=== PATIENT | female | born 2000 | race Caucasian/White ===

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

== ENCOUNTER 2021-10-14 18:39 | Inpatient (IN) ==
--- NOTE | 2021-10-14 19:56 | Emergency Department Note ---
Impression & Plan Back pain, Radiculopathy, Right leg weakness ED Provider Note NAME: KVNG SOLANO AGE: 20 SEX: F : 2000 ARRIVES VIA: Walk-In INFORMANT: Patient ED PROVIDER(S): Rangel Monson DO CHIEF COMPLAINT: back pain HPI: Patient is a 20-year-old female who presents to the ER for right sided back and leg pain. This has been going on since May. She has followed up with Greta Stuart from [facility]. She had an MRI done about 2 weeks ago. He had an injection of her spine for her wedding but now the pain is worse. She has a L5-S1 disc that is protruding and impinging on her nerve. Several days ago she bent over and felt a pop and has had worsening of the pain in her lumbar spine. She notes today that she is having trouble driving and with increased weakness in the right thigh and leg. Denies any headache or change in vision. No chest pain or shortness of breath. No nausea vomiting or diarrhea. She was told to come in by orthopedic spine. ROS: See above HPI for pertinent positives & negatives. A total of 10 systems reviewed and were otherwise negative. PAST MEDICAL HISTORY:See Below PAST SURGICAL HISTORY:See Below FAMILY HISTORY:See Below SOCIAL HISTORY:See Below HOME MEDICATIONS:See Below ALLERGIES:See Below VITALS:See Below PHYSICAL EXAMINATION: GENERAL: Sitting up in bed, alert, well appearing, well nourished, no distress, non-toxic EYE EXAM: normal conjunctiva. OROPHARYNX: no exudate, no erythema, lips, buccal mucosa, and tongue normal and mucous membranes are moist NECK: supple, no nuchal rigidity, no adenopathy, non-tender LUNGS: Clear to auscultation. Normal chest wall mechanics HEART: no murmurs, S1 normal and S2 normal ABDOMEN: abdomen soft, non-tender, normo-active bowel sounds, no masses, no rebound or guarding. BACK: Back is symmetrical on inspection and there is no deformity, midline lower lumbar tenderness tracking through right gluteus UPPER EXTREMITIES: upper extremities are grossly normal. LOWER EXTREMITIES: Flexion-extension right hip and knee 4 out of 5. Plantar and dorsiflexion as well as EHL 5 out of 5 on the right. DPs 2 out of 4. Her sensation intact. Toe pain reflexes NEURO EXAM: Normal sensorium, cranial nerves II-XII grossly intact, normal speech, no gross weakness of arms. MEDICAL DECISION MAKING: Patient is a 18-year-old female who presents ER for severe right leg pain which is worsened significantly. She is unable to sleep. She has no weakness in her right leg. IV established with records obtained. Was reviewed from early September. Labs show no significant leukocytosis or anemia. BMP was unremarkable. UA was clean. COVID was negative. Patient was given 2 dose of IV morphine. She is given IV Zofran. She is updated bedside. Discussed with Dr. Gill and he agrees with admission and will likely take to the OR tomorrow or the following day. Patient was given steroids on the ER. Triage Nursing notes reviewed. Limited review of prior medical records performed Vital Signs: reviewed and remarkable for no significant abnormalities Differential diagnosis: Differential diagnoses includes but is not limited to lumbar radiculopathy, kidney stone, muscle strain, facture, cauda equina, mass, and disc herniation. ER treatment provided: See below Diagnostics interpreted by me: ECG: none Cardiac Monitoring: An order was placed for continuous cardiac monitoring. The monitor shows a rate of 89 with sinus rhythm. Laboratory studies: As stated above and show below. Imaging studies: See below Consultation(s): As described above discussed with Fuentes Gill Procedures: none Critical Care: None Past Med/Surg History Medical History Asthma Celiac disease Ovarian cyst Paresthesia of right arm and leg Surgical History H/O endoscopy H/O wisdom tooth extraction (11/25/19) No significant past surgical history Family History Father Asthma Hypertension Cancer Brother ADHD (attention deficit hyperactivity disorder) Mother Type 2 diabetes mellitus Breast cancer Other No pertinent family history Social History Smoking Status: Never smoker Hx Alcohol Use: No Hx Substance Use: No Preferred Language: Slovenian Beliefs That Will Affect Care: None marital status: Single Current Living Situation: Parent current occupational status: employed Feels Safe at Home: Yes Dental Care, Regularly: No Seatbelt Use: always Sunscreen Use: Yes Allergies Allergies Allergy/AdvReac Type Severity Reaction Status Date / Time amoxicillin Allergy Severe hives, Verified 10/14/21 19:58 SOB, throat swelling bee venom protein (honey bee) Allergy Unknown unknown Verified 10/14/21 19:58 seafood Allergy Severe Anaphylaxis Uncoded 10/14/21 19:58 Home Meds Home Medications Medication Instructions Recorded Confirmed No Known Home Medications 10/14/21 10/14/21 Results & Data (ED) Vital Signs Vital Signs - 24 hr 10/14/21 18:56 10/14/21 19:33 10/14/21 19:51 Temperature 36.4 C L Temperature Source Temporal Artery Scan Pulse Rate 90 Pulse Rate [Finger] 90 Respiratory Rate 16 18 Respiratory Effort / Characteristics Non-Labored Spontaneous Non-Labored Spontaneous Respiratory Depth Normal Normal Respiratory Pattern Regular Blood Pressure 128/86 Blood Pressure [Right Arm] 126/98 Blood Pressure Mean 100 Blood Pressure Mean [Right Arm] 107 Blood Pressure Position [Right Arm] Semi-fowlers Pulse Oximetry 96 96 99 Oxygen Delivery Method Room Air Room Air Room Air Sepsis Recent Fever Within 48 Hours No Sepsis New/Unexplained Change in Mental Status N/A Sepsis Action Taken by Nursing No Action Required Laboratory Data Result diagrams: 10/14/21 20:03 10/14/21 20:03 Lab Results 10/14/21 10/14/21 10/14/21 Range/Units 20:03 20:03 20:03 WBC 6.69 (4.8-10.8) K/uL RBC 4.62 (4.2-5.4) M/uL Hgb 13.5 (12.0-16.0) g/dL Hct 40.5 (37-47) % MCV 87.7 (80-100) fL MCH 29.2 (25-34) pg MCHC 33.3 (32-36) g/dL RDW Std Deviation 42.3 (36.4-46.3) fL RDW Coeff of Sara 13.2 (11.5-14.5) % Plt Count 314 (130-400) K/uL MPV 10.8 H (7.4-10.4) fL Immature Gran % (Auto) 0.1 % Neut % (Auto) 61.9 % Lymph % (Auto) 30.3 % [place] % (Auto) 7.0 % Eos % (Auto) 0.6 % Baso % (Auto) 0.1 % Neut # (Auto) 4.13 (1.4-6.5) K/uL Lymph # (Auto) 2.03 (1.2-3.4) K/uL [place] # (Auto) 0.47 (0.11-0.59) K/uL Eos # (Auto) 0.04 (0-0.5) K/uL Baso # (Auto) 0.01 (0-0.2) K/uL Immature Gran # (Auto) 0.01 (0.00-0.02) K/uL Sodium 138 (136-145) mmol/L Potassium 3.9 (3.5-5.1) mmol/L Chloride 105 (98-107) mmol/L Carbon Dioxide 27 (21-32) mmol/L Anion Gap 6 (3-11) BUN 16 (6-23) mg/dl Creatinine 0.77 (0.6-1.2) mg/dl Est Cr Clr Drug Dosing 137.5 ml/min Est GFR ( Amer) 127.0 ml/min Est GFR (Non-Af Amer) 109.6 ml/min BUN/Creatinine Ratio 20.8 H (10-20) Glucose 88 (70-99(Fasting)) mg/dl Calcium 9.7 (8.5-10.1) mg/dl Urine Color Yellow Urine Appearance Cloudy A (Clear) Urine pH 6.0 (4.5-7.5) Ur Specific [place] 1.023 (1.000-1.030) Urine Protein Negative (Negative) Urine Glucose (UA) Negative (Negative) Urine Ketones Negative (Negative) Urine Blood Negative (Negative) Urine Nitrite Negative (Negative) Urine Bilirubin Negative (Negative) Urine Urobilinogen Negative (Negative) Ur Leukocyte Esterase Negative (Negative) Urine WBC (Auto) 5-10 H (0-5) /hpf Urine RBC (Auto) 0-4 (0-4) /hpf U Hyaline Cast (Auto) 1-5 (0-5) /lpf U Epithel Cells (Auto) >30 H (0-5) /lpf Urine Bacteria (Auto) 1+ H (Negative) SARS-CoV-2, RNA, NAAT (NEGATIVE) 10/14/21 Range/Units 22:04 WBC (4.8-10.8) K/uL RBC (4.2-5.4) M/uL Hgb (12.0-16.0) g/dL Hct (37-47) % MCV (80-100) fL MCH (25-34) pg MCHC (32-36) g/dL RDW Std Deviation (36.4-46.3) fL RDW Coeff of Sara (11.5-14.5) % Plt Count (130-400) K/uL MPV (7.4-10.4) fL Immature Gran % (Auto) % Neut % (Auto) % Lymph % (Auto) % [place] % (Auto) % Eos % (Auto) % Baso % (Auto) % Neut # (Auto) (1.4-6.5) K/uL Lymph # (Auto) (1.2-3.4) K/uL [place] # (Auto) (0.11-0.59) K/uL Eos # (Auto) (0-0.5) K/uL Baso # (Auto) (0-0.2) K/uL Immature Gran # (Auto) (0.00-0.02) K/uL Sodium (136-145) mmol/L Potassium (3.5-5.1) mmol/L Chloride (98-107) mmol/L Carbon Dioxide (21-32) mmol/L Anion Gap (3-11) BUN (6-23) mg/dl Creatinine (0.6-1.2) mg/dl Est Cr Clr Drug Dosing ml/min Est GFR ( Amer) ml/min Est GFR (Non-Af Amer) ml/min BUN/Creatinine Ratio (10-20) Glucose (70-99(Fasting)) mg/dl Calcium (8.5-10.1) mg/dl Urine Color Urine Appearance (Clear) Urine pH (4.5-7.5) Ur Specific [place] (1.000-1.030) Urine Protein (Negative) Urine Glucose (UA) (Negative) Urine Ketones (Negative) Urine Blood (Negative) Urine Nitrite (Negative) Urine Bilirubin (Negative) Urine Urobilinogen (Negative) Ur Leukocyte Esterase (Negative) Urine WBC (Auto) (0-5) /hpf Urine RBC (Auto) (0-4) /hpf U Hyaline Cast (Auto) (0-5) /lpf U Epithel Cells (Auto) (0-5) /lpf Urine Bacteria (Auto) (Negative) SARS-CoV-2, RNA, NAAT NEGATIVE (NEGATIVE) Administered Medications Discontinued Medications Dexamethasone (Dexamethasone Sod Inj 4 Mg/Ml Vial) Confirm Administered Dose 8 mg .ROUTE .STK-MED ONE Stop: 10/14/21 20:40 Last Admin: 10/14/21 20:48 Dose: Not Given Documented by: [id number] Dexamethasone (Dexamethasone Sod Inj 4 Mg/Ml Vial) Confirm Administered Dose 4 mg .ROUTE .STK-MED ONE Stop: 10/14/21 20:48 Last Admin: 10/14/21 21:10 Dose: Not Given Documented by: [id number] Dexamethasone 10 mg/ Syringe 2.5 mls @ 1 mls/min IV ONE ONE Stop: 10/14/21 20:32 Last Admin: 10/14/21 20:43 Dose: 1 mls/min Documented by: [id number] Morphine Sulfate (Morphine Sulfate 10 Mg/Ml Carp/Vial) 6 mg IV NOW STA Stop: 10/14/21 20:35 Last Admin: 10/14/21 20:43 Dose: 6 mg Documented by: [id number] Ondansetron HCl (Ondansetron Inj 2 Mg/Ml 2 Ml Vial) 4 mg IV NOW STA Stop: 10/14/21 20:35 Last Admin: 10/14/21 20:48 Dose: 4 mg Documented by: [id number] Discharge Plan Visit Data Chief Complaint: Back Injury/Pain Stated Complaint: BACK PAIN ED Provider: Rangel Monson Discharge Problem: Back pain, Radiculopathy, Right leg weakness Forms Stand Alone Forms: On The Net Yet Prescriptions Prescriptions: No Action No Known Home Medications RF: 0 Referrals Referrals: Gabriela Krishnan DO [Primary Care Provider] - Discharge Problem: Back pain Qualifiers: Back pain location: low back pain Chronicity: acute Back pain laterality: right Sciatica presence: unspecified whether sciatica present Qualified Code(s): M54.50 - Low back pain, unspecified Radiculopathy Qualifiers: Spinal region: unspecified Qualified Code(s): M54.10 - Radiculopathy, site u nspecified
[2021-10-14 20:17] LABS: Basophils # (auto) 0.01 K/uL (0-0.2); Basophils % (auto) 0.1 %; Eosinophils # (auto) 0.04 K/uL (0-0.5); Eosinophils % (auto) 0.6 %; Hematocrit (blood only) 40.5 % (37-47); Hemoglobin 13.5 g/dL (12.0-16.0); Immature Granulocytes # (auto) 0.01 K/uL (0.00-0.02); Immature Granulocytes % (auto) 0.1 %; Lymphocytes # (auto) 2.03 K/uL (1.2-3.4); Lymphocytes % (auto) 30.3 %; Mean Corpuscular Hemoglobin 29.2 pg (25-34); Mean Corpuscular Hgb Conc 33.3 g/dL (32-36); Mean Corpuscular Volume 87.7 fL (80-100); Mean Platelet Volume 10.8 fL (7.4-10.4); Monocytes # (auto) 0.47 K/uL (0.11-0.59); Neutrophils # (auto) 4.13 K/uL (1.4-6.5); Neutrophils % (auto) 61.9 %; Platelet Count 314 K/uL (130-400); RDW Coefficient of Variation 13.2 % (11.5-14.5); RDW Standard Deviation 42.3 fL (36.4-46.3); Red Blood Count 4.62 M/uL (4.2-5.4); White Blood Count 6.69 K/uL (4.8-10.8)
[2021-10-14 20:29] LABS: Appearance Urine Cloudy (Clear); Bacteria Urine Automated 1+ (Negative); Bilirubin Urine Negative (Negative); Blood Urine Negative (Negative); Color Urine Yellow; Epithelial Cell Urine Auto >30 /lpf (0-5); Glucose Urine UA Negative (Negative); Ketones Urine Negative (Negative); Leukocyte Esterase Urine Negative (Negative); Nitrite Urine Negative (Negative); Protein Urine Negative (Negative); RBC Urine Automated 0-4 /hpf (0-4); Specific Gravity Urine 1.023 (1.000-1.030); Urobilinogen Urine Negative (Negative)
[2021-10-14] MEDS ORDERED: dexAMETHasone 10 MG in SYRINGE 0 ML IV ONE (20:30)
[2021-10-14] MEDS ORDERED: MoRPHine SULFATE 10 MG/ML CARP/VIAL IV STA ×2 (20:34→22:56)
[2021-10-14] MEDS ORDERED: ONDANSETRON INJ 2 MG/ML 2 ML VIAL IV STA (20:34)
[2021-10-14 20:36] LABS: BUN Creatinine Ratio 20.8 (10-20); Calcium 9.7 mg/dl (8.5-10.1); Creatinine Clr Calc Pharmacy 137.5 ml/min; Est GFR (Non-African American) 109.6 ml/min; Potassium 3.9 mmol/L (3.5-5.1)
[2021-10-14] MEDS ORDERED: DEXAMETHASONE SOD INJ 4 MG/ML VIAL ONE ×2 (20:39→20:47)
[2021-10-14] MEDS ORDERED: ACETAMINOPHEN 1,000 MG/100 ML VIAL IV PRN (23:19)
[2021-10-14] MEDS ORDERED: PROMETHAZINE HCL 12.5 MG in SODIUM CHLORIDE 0.9% 50 ML IV PRN (23:19)
[2021-10-14] MEDS ORDERED: traMADol HCL 50 MG TABLET PO PRN (23:19)
[2021-10-14] MEDS ORDERED: ONDANSETRON 4 MG OD TAB PO PRN (23:19)
[2021-10-14] MEDS ORDERED: NALOXONE HCL 0.4 MG/1 ML VIAL/CARP IV PRN (23:19)
[2021-10-14] MEDS ORDERED: MAGNESIUM HYDROXIDE SUSP 30 ML UDC PO PRN (23:19)
[2021-10-14] MEDS ORDERED: ONDANSETRON INJ 2 MG/ML 2 ML VIAL IV PRN (23:19)
[2021-10-14] MEDS ORDERED: METOCLOPRAMIDE HCL INJ 5 MG/ML 2 ML VIAL IV PRN (23:19)
[2021-10-14] MEDS ORDERED: oxyCODONE HCL IR 5 MG TAB (IMMEDIATE RELEASE) PO PRN (23:19)
[2021-10-14] MEDS ORDERED: HYDROmorphone INJ 0.5 MG/0.5 ML SYR IV PRN (23:19)
[2021-10-14] MEDS ORDERED: ACETAMINOPHEN 500 MG TAB PO PRN (23:19)
[2021-10-14] MEDS: LACTATED RINGER'S 1,000 ML IV SCH (23:39)
[2021-10-14 23:47] LABS: Pregnancy Test, Serum Negative (Negative)
[2021-10-15] MEDS: HYDROmorphone INJ 1 MG/ML SYRINGE IV PRN ×3 (04:25→11:30)
--- NOTE | 2021-10-15 08:06 | History & Physical Report ---
Date of Service October 15, 2021 Assessment & Plan (1) Right leg weakness: (2) Radiculopathy: Plan: Patient has been admitted to the hospital for pain control. She is having difficulties to standing and walking at this point. She is failed an extensive course of nonoperative treatment at this point is considering surgical intervention. Surgically would perform a microdiscectomy at L5-S1 on the right. The main benefit of surgery segment chance of relief of her radicular complaints. She does realize that her weakness may take several months to completely improve. She also realizes a chance for recurrence and need for reoperation. Other risks include blood loss, infection, complications of anesthesia, worsening pain, infection, and medical complications. After thorough discussion she would like to proceed with surgical intervention as outlined above. We will try to get this done in a timely fashion. Admission and Anticipated Discharge Date Admission Date: October 14, 2021 History of Present Illness Primary Care Provider: Gabriela Krishnan DO Patient is a pleasant 20-year-old female whom we have been following in the office. In June 2021 she started having pain in the lower portion of her back that is radiating to the right leg. She has had several courses of jey roids as well as an epidural injection to try to keep her symptoms under control. This past week she has had progressive weakness in the right lower extremity. 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 She was driving with her left foot if she could not control her right foot. She can no longer tolerate the pain and signed and is a patient. She denies any change in bladder or bowel function. She is not having symptoms on the left-hand side. Allergies Allergy/AdvReac Type Severity Reaction Status Date / Time amoxicillin Allergy Severe hives, Verified 10/14/21 19:58 SOB, throat swelling bee venom protein (honey bee) Allergy Unknown unknown Verified 10/14/21 19:58 seafood Allergy Severe Anaphylaxis Uncoded 10/14/21 19:58 Home Medications Medication Instructions Recorded Confirmed Type No Known Home Medications 10/14/21 10/14/21 History Past Med/Surg History Medical History Asthma Celiac disease Ovarian cyst Paresthesia of right arm and leg Surgical History H/O endoscopy H/O wisdom tooth extraction (11/25/19) No significant past surgical history Family History Father Asthma Hypertension Cancer Brother ADHD (attention deficit hyperactivity disorder) Mother Type 2 diabetes mellitus Breast cancer Other No pertinent family history Social History Smoking Status: Never smoker Hx Alcohol Use: No Hx Substance Use: No Preferred Language: Ecuadorean Communication Ability: Effective 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 Her right lower extremity has weakness in the EHL, inverters and everters of the right foot. Strength is 3 out of 5 throughout those muscle groups. Remaining strength is 5 out of 5 to detailed muscle testing. Sensation is blunted to sharp and dull in the top of the right foot in the lateral 3 toes. Her lungs are clear to auscultation. Her heart is regular rate and rhythm. Her abdomen soft and nontender. Radial dorsalis pedis pulses are palpable. Visual mak are grossly intact. Results & Data Results & Data ([facility]) Vital Signs (Past 12 Hours) Vital Signs Temp Pulse Resp BP Pulse Ox 10/15/21 07:21 36.4 C L 67 16 118/73 96 10/15/21 00:12 36.8 C 72 18 109/70 97 10/14/21 23:25 36.8 C 72 18 144/118 H 97 10/14/21 23:00 37 C 79 18 119/69 100 Diagnostic Findings MRI of the lumbar spine performed in September 2021 was reviewed. This reveals degenerative disc disease at L4-5 and L5-S1. There is a large right paracentral disc herniation at L5-S1 compressing the exiting L5 and traversing S1 nerve root. It is occupying more than 30% of the canal. Code Status & VTE Plan VTE Prophylaxis Plan VTE Prophylaxis will be ordered: Yes (1) Radiculopathy Spinal region: unspecified Qualified Code(s): M54.10 - Radiculopathy, site unspecified
--- NOTE | 2021-10-15 09:54 | Anesthesiology Consultation ---
Date of Service October 15, 2021 Assessment & Plan (1) Encounter for pre-operative examination: Chart Review Chart Review: Acceptable Risk for Surgery and Patient NOT seen in Pre Admission Testing Consults Requested none History Surgery Operation Date: 10/15/21 10:35 Proposed Procedures p Laminectomy/Foraminotomy - Momo Gill DO Height/Weight Height: 5 ft 6 in Weight: 101 kg Allergies Allergy/AdvReac Type Severity Reaction Status Date / Time amoxicillin Allergy Severe hives, Verified 10/14/21 19:58 SOB, throat swelling bee venom protein (honey bee) Allergy Unknown unknown Verified 10/14/21 19:58 seafood Allergy Severe Anaphylaxis Uncoded 10/14/21 19:58 Medications Home Medications Medication Instructions Recorded Confirmed Last Taken No Known Home Medications 10/14/21 10/14/21 Unknown Active Medications Generic Name Dose Route Start Last Admin Trade Name Freq PRN Reason Stop Dose Admin Hydromorphone HCl 0.5 mg 10/14/21 23:19 10/15/21 01:02 Hydromorphone Inj 0.5 Mg/0.5 Ml Syr IV 10/28/21 23:18 0.5 mg Q3H PRN Administration MOD pain (scale 4-6) & Pre PT Hydromorphone HCl 1 mg 10/14/21 23:19 10/15/21 07:53 Hydromorphone Inj 1 Mg/Ml Syringe IV 10/28/21 23:18 1 mg Q3H PRN Administration severe pain (scale 7-10) Lactated Ringer's 1,000 mls @ 75 mls/hr 10/14/21 23:19 10/14/21 23:39 Lr IV 11/13/21 23:18 75 mls/hr .[id number] ARANZA Administration Past Medical History Medical History Asthma Celiac disease Ovarian cyst Paresthesia of right arm and leg Past Family History Family History Father Asthma Hypertension Cancer Brother ADHD (attention deficit hyperactivity disorder) Mother Type 2 diabetes mellitus Breast cancer Other No pertinent family history Past Surgical History Surgical History H/O endoscopy 2015 H/O wisdom tooth extraction (11/25/19) Removal of [place] Teeth 1, 16, 17, 32 and carious 2, 15 Dr. Alaniz 11/25/19 No significant past surgical history Social History Smoking Status: Never smoker Hx Alcohol Use: No Hx Substance Use: No Physical Exam Vital Signs Last Vital Signs Temp 97.5 F L 10/15/21 07:21 Pulse 67 10/15/21 07:21 Resp 16 10/15/21 07:21 BP 118/73 10/15/21 07:21 Pulse Ox 96 10/15/21 07:21 Testing Laboratory Results 10/14/21 20:03 10/14/21 20:03 Urine Color Yellow 10/14/21 20:03 Urine Appearance Cloudy (Clear) A 10/14/21 20:03 Urine pH 6.0 (4.5-7.5) 10/14/21 20:03 Ur Specific [place] 1.023 (1.000-1.030) 10/14/21 20:03 Urine Protein Negative (Negative) 10/14/21 20:03 Urine Glucose (UA) Negative (Negative) 10/14/21 20:03 Urine Ketones Negative (Negative) 10/14/21 20:03 Urine Nitrite Negative (Negative) 10/14/21 20:03 Ur Leukocyte Esterase Negative (Negative) 10/14/21 20:03 Urine WBC (Auto) 5-10 /hpf (0-5) H 10/14/21 20:03 Urine RBC (Auto) 0-4 /hpf (0-4) 10/14/21 20:03 U Hyaline Cast (Auto) 1-5 /lpf (0-5) 10/14/21 20:03 U Epithel Cells (Auto) >30 /lpf (0-5) H 10/14/21 20:03 Urine Bacteria (Auto) 1+ (Negative) H 10/14/21 20:03 Electrocardiogram Date: 08/03/18 Findings: + NSR @
[2021-10-15] MEDS ORDERED: diphenhydrAMINE 50 MG/ML VIAL IV PRN (10:20)
[2021-10-15] MEDS ORDERED: diphenhydrAMINE Capsule 25 MG CAP PO PRN ×2 (10:21→17:32)
[2021-10-15] MEDS: LACTATED RINGER'S 1,000 ML IV SCH ×3 (13:51→19:39)
[2021-10-15] MEDS ORDERED: MIDAZOLAM HCL 1 MG/ML 2ML VIAL ONE (14:24)
[2021-10-15] MEDS ORDERED: fentaNYL citrate 100 MCG/2 ML VIAL ONE (14:24)
[2021-10-15] MEDS ORDERED: DEXAMETHASONE SOD INJ 4 MG/ML VIAL ONE (14:28)
[2021-10-15] MEDS ORDERED: ONDANSETRON INJ 2 MG/ML 2 ML VIAL ONE (14:28)
[2021-10-15] MEDS ORDERED: PROPOFOL IV EMULSION 10 MG/ML 20 ML VIAL IV ONE (14:28)
[2021-10-15] MEDS ORDERED: ROCURONIUM BROMIDE 10 MG/ML 5 ML VIAL IV ONE (14:28)
[2021-10-15] MEDS ORDERED: LIDOCAINE 2% 2 ML VIAL/AMP(20MG/ML) INFIL ONE (14:28)
[2021-10-15] MEDS ORDERED: ceFAZolin 330 MG/ML 1 GM VIAL ONE (15:10)
[2021-10-15] MEDS ORDERED: BUPIVACAINE/EPINEPHRINE 0.25% 1:200,000 30 ML VIAL ONE (15:11)
--- NOTE | 2021-10-15 15:15 | History & Physical Bridge Note ---
Date of Service October 15, 2021 History & Physical Bridge Note I have examined the patient, reviewed the History & Physical and in the interval since the performance of the History & Physical I have noted the following changes of clinical significance: no changes noted L5-S1 laminectomy on the right
[2021-10-15] MEDS ORDERED: CLINDAMYCIN 600 MG/D5W 50 ML BAG IV ONE (15:23)
[2021-10-15] MEDS ORDERED: ONDANSETRON INJ 2 MG/ML 2 ML VIAL IV PRN ×2 (15:27→17:32)
[2021-10-15] MEDS ORDERED: fentaNYL citrate 100 MCG/2 ML VIAL IV PRN (15:27)
[2021-10-15] MEDS ORDERED: ePHEDrine sulfate 50 MG/ML AMP IV PRN (15:27)
[2021-10-15] MEDS ORDERED: ATROPINE SULFATE 0.1 MG/ML 10ML SYR IV PRN (15:27)
[2021-10-15] MEDS ORDERED: NEOSTIGMINE METHYLSULFATE 1 MG/ML 10ML VIAL ONE (16:23)
[2021-10-15] MEDS ORDERED: GLYCOPYRROLATE 0.2 MG/ML VIAL ONE (16:23)
--- NOTE | 2021-10-15 16:27 | Operative Report ---
Post Operative Report Pre & Post Diagnosis Operation Date: 10/15/21 10:35 Pre-Op Diagnosis: Discrimination L5-S1 with progressive neuro deficit Post-Op Diagnosis: Same I identified the patient and participated in the time-out.: Yes Procedure Operation Date: 10/15/21 10:35 Actual Procedures #1 lumbar laminotomy L5-S1 with excision of herniated free fragment on the right Surgeon Momo Gill DO Supervisor Drawing Vinicio Irving Estimated Blood Loss 20 Findings Consistent with Post-Op Diagnosis Specimens None Indications This is a 20-year-old female who presents with progressive severe radiculopathy affecting the right lower extremity and now weakness and inability to ambulate. Subsequent she is here for urgent laminectomy and discectomy. Description of Procedure Patient was met with preoperative Case discussed all questions were addressed the patient was taken back to the operative suite. After undergoing successful general intubation patient was placed in a prone position the [place] table on top of the Zhou frame. All bony prominences well-padded eyes inspected to ensure no external pressure placed upon the. This point identify the L5-S1 disc base with the assistance of fluoroscopy incision was created over lying this region. Sharp dissection with the assistance of Bovie cautery was then performed down to and exposing the interlaminar space at L5-S1 the right. Self- retaining retractors placed. I then performed a small laminotomy with excision of the lateral aspect of the ligamentum flavum to expose a severely compressed traversing S1 nerve root. I was able to mobilize this medially and identify large fragment of disc material. It was removed in its entirety. This created significant space and mobility of the nerve root. There area was explored several times which were all loose fragments addressed. It was then copiously irrigated and closed with subcutaneous Vicryl and 4 Monocryl for final skin closure. Steri-Strip sterile dressings placed. Patient waken taken PACU stable condition. Please note Vinicio Irving was present at the entire procedure involved patient positioning complex portions of the surgery and final skin closure. I attest to the content of the Intraoperative Record and any orders documented therein. Any exceptions are noted below.
--- NOTE | 2021-10-15 16:41 | Fluoroscopy Report ---
FL spine 1V any level CLINICAL HISTORY: L5-S1 LAMINECTOMY TECHNIQUE: 1 views were obtained with the C-arm in the OR with the above procedure. Total fluoroscopy time was 4 seconds. Total skin dose was 2.64 mGy. Comparison: None available at the time of this dictation. FINDINGS/IMPRESSION: Intraoperative images were obtained of L5-S1 procedure. Please correlate with intraoperative fluoroscopy and operative report. ACT 112: Negative or not required by law. Electronically signed by: Paras Deras M.D. 10/15/2021 4:39 PM
--- NOTE | 2021-10-15 17:16 | Anesthesiology Progress Note ---
Date of Service October 15, 2021 Anesthesia Post Procedure Vital Signs Vital Signs: Temp Pulse Pulse Pulse Resp BP BP 10/15/21 17:05 64 12 116/60 10/15/21 16:55 65 12 117/62 10/15/21 16:45 71 14 115/58 L 10/15/21 16:39 97.7 F 82 14 126/66 10/15/21 14:14 98.2 F 78 18 10/15/21 07:21 97.5 F L 67 16 10/15/21 00:12 98.2 F 72 18 10/14/21 23:25 98.2 F 72 18 10/14/21 23:00 98.6 F 79 18 10/14/21 19:51 10/14/21 19:33 90 18 10/14/21 18:56 97.5 F L 90 16 128/86 BP Pulse Ox 10/15/21 17:05 95 10/15/21 16:55 100 10/15/21 16:45 100 10/15/21 16:39 100 10/15/21 14:14 132/73 99 10/15/21 07:21 118/73 96 10/15/21 00:12 109/70 97 10/14/21 23:25 144/118 H 97 10/14/21 23:00 119/69 100 10/14/21 19:51 99 10/14/21 19:33 126/98 96 10/14/21 18:56 96 Pain Intensity Lower Back: Pain Intensity: 8 Transfer of Care Handoff Completed per policy Notes Mental Status: alert / awake / arousable and participated in evaluation Patient Amnestic to Procedure: Yes Nausea / Vomiting: adequately controlled Pain: adequately controlled Airway Patency, RR, SpO2: stable & adequate BP & HR: stable & adequate Hydration State: stable & adequate Anesthetic Complications: no major complications apparent and Pt Satisfied with anesthetic care
[2021-10-15] MEDS ORDERED: oxyCODONE HCL IR 5 MG TAB (IMMEDIATE RELEASE) PO PRN (17:32)
[2021-10-15] MEDS ORDERED: ACETAMINOPHEN 500 MG TAB PO PRN (17:32)
[2021-10-15] MEDS ORDERED: ACETAMINOPHEN 1,000 MG/100 ML VIAL IV PRN (17:32)
[2021-10-15] MEDS ORDERED: ALUMINUM/MAGNESIUM SUSP 30 ML UDC PO PRN (17:32)
[2021-10-15] MEDS ORDERED: hydrOXYzine HCl 25 MG TAB PO PRN (17:32)
[2021-10-15] MEDS ORDERED: HYDROmorphone INJ 0.5 MG/0.5 ML SYR IV PRN (17:32)
[2021-10-15] MEDS ORDERED: SOD PHOSPHATE/SOD BIPHOSPHATE ENEMA 132 ML BTL PR PRN (17:32)
[2021-10-15] MEDS ORDERED: LORazepam 2 MG/1 ML VIAL IV PRN (17:32)
[2021-10-15] MEDS ORDERED: NALOXONE HCL 0.4 MG/1 ML VIAL/CARP IV PRN (17:32)
[2021-10-15] MEDS ORDERED: ONDANSETRON 4 MG OD TAB PO PRN (17:32)
[2021-10-15] MEDS ORDERED: HYDROmorphone INJ 1 MG/ML SYRINGE IV PRN (17:32)
[2021-10-15] MEDS ORDERED: LORazepam 0.5 MG TAB PO PRN (17:32)
[2021-10-15] MEDS ORDERED: DO NOT ADMINISTER PNEUMOCOCCAL VACCINE PRN (17:32)
[2021-10-15] MEDS ORDERED: MAGNESIUM HYDROXIDE SUSP 30 ML UDC PO PRN (17:32)
[2021-10-15] MEDS ORDERED: DO NOT ADMINISTER FLU VACCINE PRN (17:32)
[2021-10-15] MEDS ORDERED: bisacodyL 10 MG SUPP PR PRN (17:32)
[2021-10-15] MEDS ORDERED: PROMETHAZINE HCL 12.5 MG in SODIUM CHLORIDE 0.9% 50 ML IV PRN (17:32)
[2021-10-15] MEDS ORDERED: METOCLOPRAMIDE HCL INJ 5 MG/ML 2 ML VIAL IV PRN (17:32)
[2021-10-15] MEDS ORDERED: FAMOTIDINE 20 MG TAB PO PRN (17:32)
[2021-10-15] MEDS: KETOROLAC TROMETHAMINE 15 MG/ML VIAL IV SCH (19:40)
[2021-10-15] MEDS ORDERED: DOCUSATE SODIUM/SENNA 50/8.6MG TAB PO SCH (21:00)
[2021-10-15] MEDS: traMADol HCL 50 MG TABLET PO PRN (21:35)
[2021-10-15] MEDS: CLINDAMYCIN 600 MG in DEXTROSE 5% 50 ML IV SCH (21:41)
[2021-10-16] MEDS: traMADol HCL 50 MG TABLET PO PRN (01:54)
[2021-10-16] MEDS: KETOROLAC TROMETHAMINE 15 MG/ML VIAL IV SCH ×2 (01:54→06:13)
[2021-10-16] MEDS ORDERED: CLINDAMYCIN/D5W 600 MG/50 ML BAG IV SCH (06:00)
[2021-10-16] MEDS ORDERED: POLYETHYLENE (MIRALAX) 17 GM PACK PO SCH (06:00)
[2021-10-16] MEDS: CLINDAMYCIN 600 MG in DEXTROSE 5% 50 ML IV SCH (06:14)
--- NOTE | 2021-10-16 08:26 | Discharge Summary ---
Date of Service October 16, 2021 Admission HPI Per Admitting Provider Patient is a pleasant 20-year-old female whom we have been following in the office. In June 2021 she started having pain in the lower portion of her back that is radiating to the right leg. She has had several courses of steroids as well as an epidural injection to try to keep her symptoms under control. This past week she has had progressive weakness in the right lower extremity. 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 She was driving with her left foot if she could not control her right foot. She can no longer tolerate the pain and signed and is a patient. She denies any change in bladder or bowel function. She is not having symptoms on the left-hand side. Principal Diagnosis Lumbar disc herniation with radiculopathy Discharge Data Allergies Allergy/AdvReac Type Severity Reaction Status Date / Time amoxicillin Allergy Severe hives, Verified 10/14/21 19:58 SOB, throat swelling bee venom protein (honey bee) Allergy Unknown unknown Verified 10/14/21 19:58 seafood Allergy Severe Anaphylaxis Uncoded 10/14/21 19:58 Consultations 10/14/21 20:34 ED Decision to Admit Stat Procedures Performed Operation Date: 10/15/21 10:35 Actual Procedures p Lumbar 5- Sacral 1 Laminectomy Right(Right) - Momo Gill DO Ordered Studies 10/15/21 14:30 [place] spine 1V any level Routine Hospital Course (1) Radiculopathy: Patient was admitted with severe radiculopathy and weakness underwent surgery the following day did very nicely and postop day 1 symptoms markedly improved. She is ambulating well. Strength improving. Pain controlled. Separately discharged home. Discharge orders instructions found in chart for further review. Total Time Total Time Spent Total Time Spent (In Minutes): 20 minutes Discharge Plan Discharge Items Patient Disposition: Home - Self-Care Reason For Visit: LUMBAR DISK HERNIATION WITH PAIN AND WEAKNESS Discharge Diagnosis: Lumbar disc herniation with radiculopathy Activity: As commented below Non-emergency contact: Primary Care Provider Call non-emergency contact if: you have any medication questions Follow-up/Referrals: Gabriela Krishnan DO [Primary Care Provider] - Diet: Regular Addtl Attending Provider Instructions: ACTIVITY RECOMMENDATIONS: SELF CARE INSTRUCTIONS AFTER A LAMINECTOMY 1. No prolonged sitting (less than 30 minutes for the first 3 weeks after surgery). 2. No bending, lifting more than 5 pounds, or twisting (roll like a log when turning in bed). 3. You may shower 3 days after surgery if no drainage from wound. Thoroughly dry wound. Do not soak in the tub. 4. Please walk as much as you can for exercise. Gradually increase the distance that you walk as your endurance increases. 5. You may drive in 7-10 days if you are comfortable and no longer requiring pain medications. SPECIAL CARE INSTRUCTIONS: VERY IMPORTANT TO READ AND REVIEW A. Your surgical incision has been closed with a cosmetic suture under the skin that will dissolve in about 6 weeks. In 14 days, you can use a pair of clean scissors and cut the suture that is left outside of the skin at the ends of your incision. B. Complications are uncommon, but please contact us if you have any signs or symptoms of: 1. wound infection (fever higher than 102.5 degrees F, redness, separation of wound, drainage, or increasing pain from the incision) 2. blood clots in legs (pain, swelling, redness and warmth in legs) 3. urinary tract infection (fever higher than 102.5 degrees, burning upon urination or increased frequency of urination) 4. nerve problems (inability to walk on your toes or heels, numbness, loss of bowel or bladder control) 5. any other symptoms that concern you. C. Please call the office at if you have any concerns or questions about your operation or recovery. MANAGING PAIN AFTER SPINAL SURGERY 1. Narcotic medication is intended for short-term use and will be provided for surgical pain. Surgical pain usually lasts for a period of 4-6 weeks. Narcotic medication includes Percocet, Vicodin, Darvocet, Tylenol #3 or Lortab. 2. Longer-term pain is more appropriately treated with non-narcotic medication such as Tylenol ES. 3. Muscle spasm is not appropriately treated with narcotics. Muscle relaxers such as Soma, Flexeril or Skelaxin can be used along with Tylenol ES. 4. Remember that we all live with some "aches and pains". This is not unusual or uncommon after an injury or as we get older. 5. We will provide appropriate medication within the normal guidelines of their prescribed use. We will also be very cautious and aware of potential abuse and extended duration of patients' medication needs. 6. Please allow 2-3 days to process refills. Prescriptions will not be mailed but must be picked up at the office. FOLLOW UP VISIT: Keep your scheduled follow-up appointment. Any questions, please call the office at . Pending Studies at Discharge: No Stand-Alone Forms: My [facility], Smoking Cessation Medications and DC Order Prescriptions: New tramadol 50 mg tablet 50 mg PO Q6H PRN (Reason: pain, moderate) Qty: 20 RF: 0 oxycodone 5 mg tablet 5 mg PO Q6H PRN (Reason: pain, severe) Qty: 20 RF: 0 Discharge Orders: Discharge Order (Routine); Ordered 10/16/21 Ordered By: Momo Gill Admission Data Admit Date/Time: 10/14/21 20:50 Attending Provider: Momo Gill Admit Provider: Momo Gill Primary Care Provider: Gabriela Krishnan. Other Providers: Momo Gill
== END 2021-10-16 10:59 | disposition home or self-care (01) | DRG 520 ==
LOC: ED 18:39 → 3E 20:50